=== PATIENT | female | born 1990 | race Asian ===

== ENCOUNTER 2019-08-22 10:27 | Observation (INO) | payer OTHER ==
[~2019-08-22] VITALS: Ht 168 cm; Wt 68.0 kg
== END 2019-08-22 11:15 | disposition home or self-care (01) ==
LOC: SPU 10:27
PROVIDERS: ADMIT Obstetrics & Gynecology; ATTEND Obstetrics & Gynecology
DX: O36.8130 Decreased fetal movements, third trimester, not applicable or unspecified (principal); Z3A.40 40 weeks gestation of pregnancy
CPT/HCPCS: 59025; 81002; G0378

== ENCOUNTER 2019-08-23 12:35 | Inpatient (IN) | payer OTHER ==
[~2019-08-23] VITALS: Ht 167 cm; Wt 71.8 kg
[2019-08-24] MEDS ORDERED: LR 1,000 ML IV SCH ×2 (05:26→10:45)
[2019-08-24] MEDS ORDERED: CEFAZOLIN 2 GM IVPB PREMIX 50 ML IV ONE (05:30)
[2019-08-24 06:16] LABS: BASOPHILS % (AUTO) 0.2 % (0.0-2.0); EOSINOPHILS % (AUTO) 0.4 % (0.0-4.0); HEMATOCRIT 42.1 % (36-48); LYMPHOCYTES # (AUTO) 1.3 K/uL (1.0-5.5); LYMPHOCYTES % (AUTO) 16.9 % (20.5-51.5); MEAN CORPUSCULAR HEMOGLOBIN 32 pg (27-31); MEAN CORPUSCULAR HGB CONC 33 % (32-36); MEAN CORPUSCULAR VOLUME 96 fL (79.0-98.0); MONOCYTES # (AUTO) 0.6 K/uL (0.0-1.0); MONOCYTES % (AUTO) 7.3 % (1.7-9.3); NEUTROPHILS # (AUTO) 5.9 K/uL (1.8-7.7); NEUTROPHILS % (AUTO) 75.2 % (40.0-70.0); PLATELET COUNT (AUTO) 172 K/uL (130-430); RED CELL DISTRIBUTION WIDTH 13.9 % (9.0-15.0); WHITE BLOOD COUNT (AUTO) 7.8 K/uL (4.8-10.8)
[2019-08-24 06:38] VITALS: BP_SYST 128
[2019-08-24 07:03] LABS: BILIRUBIN,URINE NEGATIVE (NEGATIVE); CLARITY/URINE SL CLOUDY (CLEAR); COLOR,URINE YELLOW (YELLOW); GLUCOSE,URINE NEGATIVE (NEGATIVE); KETONES,URINE NEGATIVE (NEGATIVE); LEUKOCYTE ESTERASE ,URINE 2+ (NEGATIVE); NITRITE, URINE NEGATIVE (NEGATIVE); PROTEIN URINE NEGATIVE (NEGATIVE)
[2019-08-24 07:07] LABS: BLOOD, URINE TRACE (NEGATIVE)
[2019-08-24 07:16] LABS: BACTERIA,URINE MODERATE /HPF (None Seen)
[2019-08-24] MEDS ORDERED: OXYTOCIN/0.9 % SODIUM CHLORIDE 20 UNITS/1,000 ML BAG IV ONE (08:44)
[2019-08-24] MEDS ORDERED: METOCLOPRAMIDE HCL 10 MG/2 ML VIAL ONE (08:44)
[2019-08-24] MEDS ORDERED: NS IRRIG SOLN 1000 ML IR ONE (08:44)
[2019-08-24] MEDS ORDERED: KETOROLAC TROMETHAMINE 30 MG VIAL ONE (08:44)
[2019-08-24] MEDS ORDERED: ONDANSETRON HCL 4 MG/2 ML VIAL ONE (08:44)
[2019-08-24] MEDS ORDERED: LR 1,000 ML IV.SOLN IV ONE (08:44)
[2019-08-24 08:53] VITALS: BP_SYST 103
[2019-08-24] MEDS ORDERED: RHO(D) IMMUNE GLOBULIN/MALTOSE 1500 UNITS/1.3 ML (WINHRO) IM PRN (10:45)
[2019-08-24] MEDS ORDERED: BISACODYL 10 MG/SUPPOSITORY RC PRN (10:45)
[2019-08-24] MEDS ORDERED: HYDROcodone/ACETAMIN 5-325 MG TAB (NORCO/ VICODIN) PO PRN (10:45)
[2019-08-24] MEDS ORDERED: OXYTOCIN/0.9 % SODIUM CHLORIDE 1,000 ML IV ONE (10:45)
[2019-08-24] MEDS ORDERED: ANUSOL 1 EA SUPP.RECT (PREPARATION H) RC PRN (10:45)
[2019-08-24] MEDS ORDERED: MEASLES,MUMPS&RUBELLA VACC/PF 12500 UNIT/0.5 ML VIAL SUBQ PRN (10:45)
[2019-08-24] MEDS ORDERED: LANOLIN 7 GM OINT. TP PRN (10:45)
[2019-08-24] MEDS ORDERED: DIPH-TET-PERTUS Vaccine 0.5 ML VIAL (ADACEL) I.M. PRN (10:45)
[2019-08-24] MEDS ORDERED: DOCUSATE SODIUM 100 MG CAPSULE PO PRN (10:45)
[2019-08-24] MEDS ORDERED: OXYCODONE/ACETAMINOPHEN 5-325 TABLET PO PRN (10:45)
[2019-08-24] MEDS ORDERED: SENNOSIDES/DOCUSATE SODIUM 1 TAB TABLET(SENOKOT-S) PO PRN (10:45)
[2019-08-24] MEDS ORDERED: KETOROLAC TROMETHAMINE 60 MG/2 ML VIAL IM ONE (11:00)
[2019-08-24] MEDS ORDERED: ONDANSETRON HCL 4 MG/2 ML VIAL IVP PRN (13:00)
[2019-08-24] MEDS: CEFAZOLIN 1 GM IVPB PREMIX 50 ML IV SCH ×2 (17:51→23:39)
[2019-08-24] MEDS: KETOROLAC TROMETHAMINE 30 MG VIAL IVP SCH (17:52)
[2019-08-24] MEDS: SIMETHICONE 80 MG TAB.CHEW PO PRN (17:53)
[2019-08-24] MEDS ORDERED: TEMAZEPAM 15 MG CAPSULE PO PRN (21:00)
[2019-08-25] MEDS: CEFAZOLIN 1 GM IVPB PREMIX 50 ML IV SCH (04:56)
[2019-08-25] MEDS: KETOROLAC TROMETHAMINE 30 MG VIAL IVP SCH ×2 (04:56→10:30)
[2019-08-25 06:24] LABS: BASOPHILS % (AUTO) 0.1 % (0.0-2.0); EOSINOPHILS % (AUTO) 0.3 % (0.0-4.0); HEMATOCRIT 39.2 % (36-48); LYMPHOCYTES # (AUTO) 1.1 K/uL (1.0-5.5); MEAN CORPUSCULAR HEMOGLOBIN 32 pg (27-31); MEAN CORPUSCULAR HGB CONC 33 % (32-36); MEAN CORPUSCULAR VOLUME 97 fL (79.0-98.0); MONOCYTES # (AUTO) 0.6 K/uL (0.0-1.0); MONOCYTES % (AUTO) 6.3 % (1.7-9.3); NEUTROPHILS % (AUTO) 82.3 % (40.0-70.0); PLATELET COUNT (AUTO) 158 K/uL (130-430); RED BLOOD CELL COUNT(AUTO) 4.03 MIL/uL (4.2-6.2); RED CELL DISTRIBUTION WIDTH 13.9 % (9.0-15.0); WHITE BLOOD COUNT (AUTO) 9.7 K/uL (4.8-10.8)
[2019-08-25] MEDS: OXYCODONE/ACETAMINOPHEN 5-325 TABLET PO PRN (15:35)
[2019-08-25] MEDS: IBUPROFEN 600 MG TABLET PO SCH ×2 (18:15)
[2019-08-26] MEDS: SIMETHICONE 80 MG TAB.CHEW PO PRN (00:14)
[2019-08-26] MEDS: OXYCODONE/ACETAMINOPHEN 5-325 TABLET PO PRN ×2 (03:36→11:34)
[2019-08-26] MEDS: IBUPROFEN 600 MG TABLET PO SCH ×3 (06:00→13:23)
== END 2019-08-26 14:00 | disposition home or self-care (01) | DRG 788 ==
LOC: UNDOADMIN 19:54 → SPU 19:54
PROVIDERS: ADMIT Obstetrics & Gynecology; ATTEND Obstetrics & Gynecology
PROC: 10D00Z1 Extraction of Products of Conception, Low, Open Approach (ICD-10-PCS; principal; 2019-08-24 07:30)
DX: O34.41 Maternal care for other abnormalities of cervix, first trimester (principal); O69.81X0 Labor and delivery complicated by cord around neck, without compression, not applicable or unspecified; Z37.0 Single live birth; Z3A.40 40 weeks gestation of pregnancy
CPT/HCPCS: 36415; 81000-TC; 85025; 86592; 86886; 86900; 86901; 87086; 94760; J0690; J1885; J2405; J2590; J2765; J7120